=== PATIENT | female | born 1995 | race Caucasian/White ===

== ENCOUNTER 2024-06-17 20:59 | Inpatient (IN) | payer BC, OTHER ==
[~2024-06-17] VITALS: Ht 162.6 cm; Wt 83.2 kg
--- NOTE | 2024-06-17 21:05 | NUR ---
2104- PT PRESENTS TO LDR COMPLAINING OF CONTRACTIONS, AMBULATORY TO ROOM LR6, CHANGED INTO GOWN. 2112- EFM X2 APPLIED. PT REPORTS CONTRACTIONS ALL DAY, NOW STRONGER. SHE DENIES LEAKING FLUID OR VAGINAL BLEEDING. STATES SHE FEELS THE BABY MOVE LESS WITH HER CONTRACTIONS THAN BEFORE. PLAN OF CARE FOR LABOR CHECK DISCUSSED AND QUESTIONS ANSWERED. CONSENT FOR VAGINAL EXAMS OBTAINED. 2116- LATE DECELERATION NOTED WITH PREVIOUS CONTRACTIONS, WILL REPOSITION AFTER SVE. SVE BY THIS NURSE WITH NO FLUID POOLING OR BLOOD WITH EXAM. 2121- PT REPOSITIONED IN LEFT LATERAL AFTER SECOND LATE DECELERATION. PLAN OF CARE DISCUSSED WITH PT FOR FLUID RESUSCITATION FOR LATE DECELERATIONS. 2125- IV START TO RIGHT WRIST WITH 18G TIMES 1 STICK. BLOOD DRAWN FOR LABS. 2127- LR BOLUS INFUSING FOR LATE DECELERATIONS. 2136- DR RINCON CALLED AND UDATED ON PT HISTORY, PRESENTING COMPLAINT OF CONTRACTIONS. INFORMED THAT EFM SHOWS LATE DECELERATIONS WITH INITIAL BASELINE OF 160, MODERATE VARIABILITY, AND ACCELERATIONS. TOCO WITH INCONSISTENT CONTRACTIONS. IV SITE ALREADY STARTED WITH LR BOLUS FOR LATE DECELERATIONS. PT NOT PRESENTING LIKE SHE IS IN ACTIVE LABOR, BUT SHE IS THE MORNING SCHEDULED INDUCTION AND POSTDATES. DR RINCON GIVES ADMISSION ORDERS, MAY START PITOCIN "LOW AND SLOW" AT LEAST 1 HOUR AFTER LATE DECELERATIONS LONG STRIP IS REACTIVE. PT MAY HAVE EPIDURAL OR IV PAIN MEDICATION, BUT PLEASE CALL. 2199- PT UPDATED ON PLAN OF CARE FROM DR RINCON. SHE AND ARE AGREEABLE WITH ADMISSION AT THIS TIME. REASSURANCE PROVIDED. 2209- NURSING ADMISSION HISTORY AND ASSESSMENT COMPLETED. 2214- DR RINCON CALLS BACK. STATES SHE PULLED UP THE EFM STRIP AT HOME AND REVIEWED IT. STATES SHE WOULD LIKE TO MAKE SURE THE PT RECEIVES AT LEAST 750ML OF LR BOLUS AND NOT TO START PITOCIN BEFORE MIDNIGHT SO THAT BABY CAN RECOVER FROM LATE DECELERATIONS. 2229- CONSENTS SIGNED.
[2024-06-17 21:30] VITALS: BP 121/71; PULSE 72; TEMP 98.7
[2024-06-17] MEDS ORDERED: LR 1,000 ML IV PRN (21:45)
[2024-06-17] MEDS ORDERED: LR & Oxytocin 500 ML IV SCH (21:45)
[2024-06-17] MEDS ORDERED: QUALITY CHOICE1 TA7 (22:23)
[2024-06-17] MEDS ORDERED: NATURAL IRON65 MG (22:24)
[2024-06-17 22:33] LABS: BASO % 0.2 % (0.0-2.0); EOS # 0.1 K/mm3 (0.0-0.7); EOS % 0.3 % (0.0-4.0); GRAN # 12.2 K/mm3 (1.4-6.5); GRAN % 78.1 % (42.2-75.2); HEMOGLOBIN 12.8 g/dl (12.5-16.0); LYMPH # 2.3 K/mm3 (1.2-3.4); LYMPH % 14.5 % (20.0-51.0); MEAN CELL VOLUME 89 fl (80.0-100.0); MEAN CORPUSCULAR HEMOGLOBIN 31 pg (27-31); MEAN CORPUSCULAR HGB CONC 35 g/dl (33.0-37.0); MONO % 6.4 % (1.7-9.3); PLATELET COUNT 179 K/mm3 (130-400); RED BLOOD COUNT 4.13 M/mm3 (4.10-5.30); REDCELL DISTRIBUTION WIDTH-CV 12.5 % (11.5-14.5)
[2024-06-17 22:34] LABS: HEMATOCRIT 36.8 % (37.0-47.0)
--- NOTE | 2024-06-17 22:35 | NUR ---
2235- PT ASSISTED UP TO BATHROOM. 2248- PT BACK TO BED AND MONITORS ADJUSTED.
[2024-06-17 23:00] VITALS: BP 116/62; PULSE 64
[2024-06-17 23:30] VITALS: BP 111/61; PULSE 65
[2024-06-18] VITALS (66 sets, daily range): BP systolic 16–134; BP diastolic 53–88; PULSE 59–77; TEMP 98–98.5
--- NOTE | 2024-06-18 02:40 | NUR ---
RN AT THE BEDSIDE TO ADJUST MONITORS. I OBTAIN HEART TONES IN THE 60'S AND PT IS REPOSITIONED TO HER LEFT SIDE, CONTINUE TO GET HEART TONES IN THE 60'S TO 70'S. PT REPOSITIONED TO HANDS AND KNEES AND HEART TONES IN THE 90'S OBTAINED I HOLD THE US IN PLACE. FLUID BOLUS STARTED WELL. DR RINCON NOTIFIED OF CHANGE IN PT AND STATUS. SVE /-2.
--- NOTE | 2024-06-18 03:00 | NUR ---
0240: RN AT THE BEDSIDE ADJUSTING MONITORS. PT CURRENTLY ON HER RIGHT SIDE. THIS RN ADJUSTS US MONITOR, OBTAINS HEART TONES IN THE 60'S. PT REPOSITIONED TO HER LEFT SIDE. 0241: PT ON LEFT SIDE, HEART TONES CONTINUE TO REMAIN IN THE 60'S. 0243: PT REPOSITIONED TO HANDS AND KNEES, US MONITOR HELD IN PLACE BY THIS RN, FLUID BOLUS STARTED. PULSE OX PLACED ON PT. 0249: SVE 5/85/-2, PT PLACED ON HER LEFT SIDE. HEART TONES IN THE 150'S AT THIS TIME. RN REMAINS AT THE BEDSIDE.
[2024-06-18] MEDS ORDERED: ROPivacaine PF 0.2% 200 ML IV ONE (07:24)
--- NOTE | 2024-06-18 07:33 | NUR ---
PT SEATED AT BEDSIDE. O2 AND BP[ MONITORS ON. CHIRSTINA AT BEDSIDE EXPLAING RISKS OF EPIDRURAL. PT TOLERATES PROCEEDURE WELL. VS AND FHT WNL. DIFFICULTY TRACING CTX AT THIS TIME. PT REPOSTIONED TO WEDGE LEFT.
[2024-06-18] MEDS ORDERED: diphenhydrAMINE 25 MG CAP PO PRN (08:00)
[2024-06-18] MEDS ORDERED: diphenhydrAMINE 50 MG/ML 1 ML VIAL IV PRN (08:00)
[2024-06-18] MEDS ORDERED: Naloxone 0.4 MG/ML VIAL IV PRN ×2 (08:00→19:00)
[2024-06-18] MEDS ORDERED: ePHEDrine 50 MG/10 ML VIAL IV PRN (08:00)
[2024-06-18] MEDS ORDERED: Ondansetron 4 MG/2 ML VIAL IV PRN (08:00)
--- NOTE | 2024-06-18 13:51 | NUR ---
DR KAUR CALLED FOR AN UPDATE. PT SVE 8 CM, PITOCIN IS ON 4, AND BABY IS TOLERATING. DR KAUR RESPONDED OKAY, THANKS FOR THE UPDATE.
--- NOTE | 2024-06-18 16:14 | NUR ---
1440- PT FEELING PRESURE AND VOMITING. SVE COMPLETE/100/0. 1449- CALLED DR KAUR TO UPDATE. DR KAUR SAID TO START PUSHING. 1508- STARTED PUSHING. GOOD MATERNAL EFFORT NOTED. 1556- CALLED DR KAUR FOR DELIVERY, HE SAID HE WAS ON HIS WAY SHORTLY. 1605- DR KAUR AT BEDSIDE. GOOD MATERNAL EFFORT NOTED. 1611- DR KAUR PLACED VACUUM ON HEAD DUE TO FHT. NO SUCTION APPLIED AT THIS TIME. 1613- VACCUUM SUCTION SET TO GREEN BY DR KAUR. TRACTION X3 WITH PUSHES. 1614- VACCUUM REMOVED HEAD DELIVERED. NUCHAL X2. THICK MEC. SPONTANEOUS VAGINAL DELIVERY IF A VIABLE BABY BOY. CORD CUT BY FOB. PLACED ON MOTHERS CHEST. CARE OF INFANT TAKEN OVER BY NURSERY NURSE MATHEUS. 1618- SPONTANEOUS DELIVERY OF THE PLACENTA. REPAIR TO THE LEFT LABIA DONE BY DR KAUR. PT REPOSITIONED TO . VS WNL. QBL 230.
[2024-06-18] MEDS ORDERED: NIFEdipine XL 30 MG TAB PO SCH (17:14)
[2024-06-18] MEDS ORDERED: Loratadine 10 MG TAB PO PRN (17:15)
[2024-06-18] MEDS ORDERED: Magnes Hydrox (MOM) 80 MG/ML 30 ML CUP PO PRN (17:15)
[2024-06-18] MEDS ORDERED: Mag/Al Hydrox/Simeth Susp 30 ML CUP PO PRN (19:00)
[2024-06-18] MEDS ORDERED: Acetaminophen 500 MG TAB PO SCH (19:00)
[2024-06-18] MEDS ORDERED: Measles/Mumps/Rubella Virus Vaccine Live w Diluent 0.5 ML VIAL SQ SCH (19:00)
[2024-06-18] MEDS ORDERED: oxyCODONE 5 MG TAB PO PRN (19:00)
[2024-06-18] MEDS ORDERED: Phenylephrine/Mineral Oil/Petrolatum 57 GM TUBE RC PRN (19:00)
[2024-06-18] MEDS ORDERED: Ibuprofen 800 MG TAB PO SCH (19:00)
[2024-06-18] MEDS ORDERED: Witch Hazel 50% Pads Bulk TUB TP PRN (19:00)
[2024-06-18] MEDS ORDERED: traZODone 50 MG TAB PO PRN (21:00)
[2024-06-19 01:30] VITALS: BP 101/65; PULSE 62; TEMP 98
[2024-06-19 05:00] VITALS: BP 114/55; PULSE 64; TEMP 98
[2024-06-19 07:20] VITALS: BP 110/64; PULSE 60; TEMP 97.6
[2024-06-19] MEDS ORDERED: Sennosides/Docusate 8.6-50 MG TAB PO SCH (08:00)
[2024-06-19] MEDS ORDERED: MOTRIN 800800 MG/TAB PO (08:17)
--- NOTE | 2024-06-19 09:14 | NUR ---
Initial visit; Parents thanked Line Locator for offering congratulations and God's blessings for the of their son and for mentioning what a nice name they chose for him. thanked family for choosing our hospital and was pleased to hear their experience here has been very good.
[2024-06-19 12:45] VITALS: BP 109/59; PULSE 67; TEMP 98
--- NOTE | 2024-06-19 14:00 | NUR ---
Report recieved from JAMEY Calle that Pt called out with complaints of passing a bloot clot in the toilet. This RN to bedside. Clot removed from toilet and evaluated, noted to be an approx 3cm ball, soft upon palpation. Pt denies any excessive bleeding or cramping. Encouraged Pt to monitor bleeding closely and use call light with any concerns. Pt verbalizes understanding.
[2024-06-19 17:45] VITALS: BP 105/56; PULSE 70
[2024-06-19 21:33] VITALS: BP 116/57; PULSE 61; TEMP 98.2
[2024-06-20 08:15] VITALS: BP 112/53; PULSE 73; TEMP 98.3
== END 2024-06-20 10:10 | disposition home or self-care (01) | DRG 807 ==
LOC: LDRO 20:59 → OB 21:10 → LDR 21:10 → OB 06-18 20:40
PROVIDERS: Obstetrics & Gynecology; ADMIT Obstetrics & Gynecology
PROC: 10D07Z6 Extraction of Products of Conception, Vacuum, Via Natural or Artificial Opening (ICD-10-PCS; principal; 2024-06-18)
PROC: 0KQM0ZZ Repair Perineum Muscle, Open Approach (ICD-10-PCS; 2024-06-18)
PROC: 0UQMXZZ Repair Vulva, External Approach (ICD-10-PCS; 2024-06-18)
DX: O48.0 Post-term pregnancy (principal); Z37.0 Single live birth; O77.0 Labor and delivery complicated by meconium in amniotic fluid; O76 Abnormality in fetal heart rate and rhythm complicating labor and delivery; O69.81X0 Labor and delivery complicated by cord around neck, without compression, not applicable or unspecified; O99.02 Anemia complicating childbirth; D64.9 Anemia, unspecified; O70.1 Second degree perineal laceration during delivery; Z3A.40 40 weeks gestation of pregnancy
CPT/HCPCS: J2590; J2795; J7120